=== PATIENT | female | born 1990 | race Caucasian/White ===

== ENCOUNTER 2025-04-10 21:55 | Inpatient (IN) ==
--- NOTE | 2025-03-28 12:04 | Anesthesiology Consultation ---
Date of Service March 28, 2025 Assessment & Plan (1) Encounter for pre-operative examination: - Per tumbler machine operator on 03/28/25: No known infectious disease contacts, current infectious disease symptoms in past 10 days or COVID positive test result in the past 30 days. 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 no hx hospitalization. Unique anesthetic considerations on preoperative anesthesia assessment Pt concerned about n/v and requesting anti nausea medication and also requests anti anxiety medication to help with anxiety about upcoming c/s. Pt plans to discuss requests also with OBGYN at next visit 03/30/25. pre op edu rev. Past Surgical History Surgical History History of colonoscopy with polypectomy Social History Smoking Status: Former smoker Do You Dip or Chew Tobacco: No Smoking End Date: vape prior to pregancy Hx Alcohol Use: Yes (social to ) Hx Substance Use: No substance use type: does not use
[~2025-04-10 21:55] MED LIST: ceFAZolin 3,000 MG/72.5 ML BAG IV SCH
[2025-04-10] MEDS ORDERED: LACTATED RINGER'S 1,000 ML IV SCH (22:15)
[2025-04-10] MEDS: LACTATED RINGER'S 1,000 ML IV SCH (22:15)
[2025-04-10] MEDS ORDERED: ONDANSETRON INJ 2 MG/ML 2 ML VIAL ONE (22:21)
[2025-04-10] MEDS ORDERED: OXYTOCIN 10 UNITS/ML VIAL ONE ×2 (22:21→23:01)
[2025-04-10] MEDS ORDERED: DEXAMETHASONE SOD INJ 4 MG/ML VIAL ONE (22:21)
[2025-04-10] MEDS ORDERED: PHENYLEPHRINE HCL 25 MG/250 ML NSS IV ONE (22:22)
[2025-04-10] MEDS ORDERED: MoRPHine SULFATE PF 1 MG/ML 10 ML AMP/VIAL ONE (22:22)
--- NOTE | 2025-04-10 22:23 | History & Physical Report ---
Date of Service April 10, 2025 Assessment & Plan (1) Breech presentation at : Plan: section Admission and Anticipated Discharge Date Admission Date: April 10, 2025 History of Present Illness Chief Complaint: Intrauterine 39 weeks 5 days gestation Kota rupture membranes Breech presentation Primary Care Provider: Alecia Cedeño MD Patient is a 34-year-old 1 para 0 her due date is April 14, 2025. She has had no problems. She was diagnosed with a breech presentation at 34 weeks gestation. Her last ultrasound in the office confirmed breech presentation it was 2 weeks ago. She is scheduled for primary section on April 11, 2025. She stated 8 PM the day of admission she had a gush of fluid and continuous leakage of fluid. She called and was told to come to maternity for evaluation. Once on maternity floor ruptured fluid was confirmed. At bedside ultrasound confirmed breech presentation with the head in the midline in the upper uterus. Past medical history she has no known drug allergies. She has had no previous surgery. Allergies Allergy/AdvReac Type Severity Reaction Status Date / Time No Known Allergies Allergy Verified 03/28/25 09:17 Home Medications Medication Instructions Recorded Confirmed Type prenat.vits,deisy,ara-wugg-lelhd 1 tab PO DAILY 03/28/25 03/28/25 History Past Med/Surg History Problem List (Updated 04/10/25 @ 22:22 by Andrés Cleveland MD) Breech presentation at Encounter for pre-operative examination Medical History Breech presentation History of colon polyps History of COVID-19 hx + home test 2020. no hx hospitalization. Unique anesthetic considerations on preoperative anesthesia assessment Pt concerned about n/v and requesting anti nausea medication and also requests anti anxiety medication to help with anxiety about upcoming c/s. Pt plans to discuss requests also with OBGYN at next visit 03/30/25. pre op edu rev. Surgical History History of colonoscopy with polypectomy Social History Smoking Status: Former smoker Tobacco Type: E-cigarettes / Vaping Smoking End Date: vape prior to pregancy; Do You Dip or Chew Tobacco: No; Hx Alcohol Use: Yes (social to ) Hx Substance Use: No Preferred Language: Romansh Communication Ability: Effective Retail Pharmacist Required: No Beliefs That Will Affect Care: None Current Living Situation: Spouse Other Information That Helps Us Care for You: No Feels Safe at Home: Yes Assistive Devices: None Physical Exam Physical Exam: Patient appeared to be well-developed well-nourished 34-year-old white female alert oriented x 3 cooperative in no acute distress appears stated age. Heart had regular rhythm S1 and S2 were normal. Lungs are clear to auscultation percussion. Trachea was midline there is no cervical adenopathy. Extraocular movements were intact. Abdominal examination was consistent with a breech presentation with a head ballotable in the midline at the top of the fundus. Pelvic exam revealed the presenting part to be a -3 station cervix to be closed with kota rupture of membranes. Results & Data Results & Data Vital Signs (Past 12 Hours) Vital Signs Pulse BP 04/10/ 22:03 85 127/71 Diagnostic Findings Rupture membranes Breech presentation by bedside ultrasound
[2025-04-10] MEDS ORDERED: MoRPHine SULFATE PF 1 MG/ML 10 ML AMP/VIAL INT SPINAL ONE (22:48)
[2025-04-10] MEDS ORDERED: HYDROmorphone INJ 0.5 MG/0.5 ML SYR IV PRN (22:48)
[2025-04-10] MEDS ORDERED: ONDANSETRON INJ 2 MG/ML 2 ML VIAL IV PRN (22:48)
[2025-04-10] MEDS ORDERED: diphenhydrAMINE 50 MG/ML VIAL IV PRN (22:48)
[2025-04-10] MEDS ORDERED: NALBUPHINE HCL INJ 10 MG/ML AMP IV PRN (22:48)
[2025-04-10] MEDS ORDERED: LACTATED RINGER'S 500 ML IV PRN (22:48)
[2025-04-10] MEDS ORDERED: NALOXONE HCL 1 MG in SODIUM CHLORIDE 0.9% 1,000 ML IV PRN (22:48)
[2025-04-10] MEDS ORDERED: PROMETHAZINE 6.25 MG/50.25 ML BAG IV PRN (22:48)
[2025-04-10] MEDS ORDERED: NALOXONE HCL 0.4 MG/1 ML VIAL/CARP IV PRN (22:48)
[2025-04-10] MEDS ORDERED: MoRPHine SULFATE 2 MG/ML CARP IV PRN (22:48)
[2025-04-10] MEDS: ACETAMINOPHEN 500 MG TAB PO SCH (22:54)
[2025-04-10] MEDS: CITRIC ACID/SODIUM CITRATE 15 ML UDC PO SCH (22:57)
[2025-04-10] MEDS ORDERED: DC INTRASPINAL MORPHINE SCH (23:00)
[2025-04-10] MEDS ORDERED: NO NARCOTICS OR SEDATIVES SCH (23:00)
[2025-04-10] MEDS: cefOXitin 2,000 MG in DEXTROSE 5 % MINI-B 50 ML IV SCH (23:00)
[2025-04-10] MEDS ORDERED: SODIUM CHLORIDE 0.9% 1,000 ML IV SCH (23:00)
[2025-04-10 23:10] LABS: Hematocrit (blood only) 35.1 % (37.0-47.0); Hemoglobin 12.2 g/dL (12.0-16.0); Mean Corpuscular Hemoglobin 32.4 pg (25.0-34.0); Mean Corpuscular Volume 93.4 fL (80.0-100.0); Platelet Count 147 K/uL (130-400); RDW Standard Deviation 43.6 fL (36.4-46.3); Red Blood Count 3.76 M/uL (4.20-5.40); White Blood Count 10.28 K/ul (4.8-10.8)
--- NOTE | 2025-04-11 00:01 | Anesthesiology Consultation ---
Date of Service April 11, 2025 Assessment & Plan ASA [id number] Proposed Anesthesia Anesthesia Type: Spinal Risk / Benefits Reviewed With: PT / POA / Parent / Guardian, Accepts Plan and Informed Consent Obtained Additional Comments: original day of surgery note was put in before surgery but under the wrong visit id. History Surgery Operation Date: 04/11/25 07:30 Proposed Procedures p Primary Section - Alecia Cedeño MD Height/Weight Height: 5 ft 8 in Weight: 104.326 kg Allergies Allergy/AdvReac Type Severity Reaction Status Date / Time No Known Allergies Allergy Verified 03/28/25 09:17 Medications Home Medications Medication Instructions Recorded Confirmed Last Taken prenat.vits,deisy,uuj-jaud-vnevb 1 tab PO DAILY 03/28/25 04/10/25 04/10/25 08:00 Active Medications Generic Name Dose Route Start Last Admin Trade Name Freq PRN Reason Stop Dose Admin Acetaminophen 1,000 mg 04/10/25 06:00 04/10/25 22:54 Acetaminophen 500 Mg Tab PO 04/11/25 06:00 1,000 mg PREOP DANG Administration Citric Acid/Sodium Citrate 30 ml 04/10/25 06:00 04/10/25 22:57 Citric Acid/Sodium Citrate 15 Ml Udc PO 04/11/25 06:00 30 ml PREOP DANG Administration Cefoxitin Sodium 2,000 mg/ 50 mls @ 100 mls/hr 04/10/25 06:00 04/10/25 23:00 Dextrose IV 04/11/25 05:59 100 mls/hr PREOP DANG Administration Protocol NPO Date Last Intake of Fluids: 04/10/25 Time Last Intake of Fluids: 20:00 Date Last Intake of Solids: 04/10/25 Time Last Intake of Solids: 16:30 Past Medical History Medical History Breech presentation History of colon polyps History of COVID-19 hx + home test 2020. no hx hospitalization. Unique anesthetic considerations on preoperative anesthesia assessment Pt concerned about n/v and requesting anti nausea medication and also requests anti anxiety medication to help with anxiety about upcoming c/s. Pt plans to discuss requests also with OBGYN at next visit 03/30/25. pre op edu rev. Exercise / Class Metabolic Activity II 4-5 Yardwork/Stairs/Walk up hill Past Surgical History Surgical History History of colonoscopy with polypectomy Past Anesthesia History No Hx of Anesthesia Complications and No Family Hx of Anesthesia Complications History of PONV No Hx of PONV and No Hx of Motion Sickness Social History Smoking Status: Never smoker Do You Dip or Chew Tobacco: No Smoking End Date: vape prior to pregancy Hx Alcohol Use: Yes (social to ) Hx Substance Use: No substance use type: does not use Review of Systems denies fever/cough/ colds/ chest pain/ SOB/ RUDOLPH denies RUDOLPH Physical Exam Vital Signs Last Vital Signs Temp 36.8 C 04/10/25 22:38 Pulse 85 04/10/25 22:03 Resp 16 04/10/25 22:38 BP 127/71 04/10/25 22:03 Constitutional no acute distress ENMT Mouth: no dentition abnormality Thyromental Distance: > or= 3.5 Finger Breadths Mallampati Class: II Neck normal visual inspection Respiratory normal respiratory effort; no respiratory distress Auscultation: lungs clear to auscultation bilaterally Cardiovascular Rate/Rhythm: regular rate and regular rhythm Heart Sounds: no murmur Musculoskeletal Spine: normal cervical ROM Neurologic moves all extremities Psychiatric Orientation: alert and oriented x 3 Testing Laboratory Results 04/10/25 22:39 Blood Type O Positive 04/10/25 22:39 Antibody Screen NEGATIVE 04/10/25 22:39
[2025-04-11] MEDS: OXYTOCIN 10 UNITS/ML VIAL IM ONE (00:19)
[2025-04-11] MEDS ORDERED: PROMETHAZINE 12.5 MG/50.5 ML BAG IV PRN (00:42)
[2025-04-11] MEDS ORDERED: diphenhydrAMINE Capsule 25 MG CAP PO PRN (00:42)
[2025-04-11] MEDS ORDERED: HYDROCORTISONE ACETATE 25 MG SUPP PR PRN (00:42)
[2025-04-11] MEDS ORDERED: BENZOCAINE 20% SPRY 85 APPLN/85 GM CAN EXT PRN (00:42)
[2025-04-11] MEDS ORDERED: SENNA 8.6 MG TAB PO PRN (00:42)
[2025-04-11] MEDS ORDERED: CALCIUM CARBONATE 500 MG CHEWABLE TAB PO PRN (00:42)
[2025-04-11] MEDS ORDERED: LACTATED RINGER'S 1,000 ML IV SCH ×2 (00:45→06:00)
--- NOTE | 2025-04-11 00:52 | Operative Report ---
Post Operative Report Pre & Post Diagnosis Operation Date: 04/11/25 07:30 Pre-Op Diagnosis: breech presentation; SROM @ 39 weeks Ruptured membranes Post-Op Diagnosis: same as preop I identified the patient and participated in the time-out.: Yes Procedure Operation Date: 04/11/25 07:30 Actual Procedures p Section in LD for the of a live female child @ 2349(Bilateral) - Andrés Cleveland MD Surgeon Andrés Cleveland MD Research Engineer Nurse physician office assistant Estimated Blood Loss 964 Findings Consistent with Post-Op Diagnosis Right breech presentation Macrosomia Specimens Placenta Drains None Anesthesia Type Spinal Complications None Indications Breech presentation Macrosomia Jhonny rupture membranes Description of Procedure Patient was brought to the OR table correctly identified by armband and conversation. Spinal anesthesia was administered. Garcia catheter was inserted aseptically into the bladder. Compression stockings were applied. Lower abdomen was painted with an alcohol-based sterilizing solution. Timeout was taken. Level of the anesthesia was tested and found to be adequate. A Pfannenstiel incision was made carried down to the anterior fascia by sharp dissection. Hemostasis was secured by electrocauterization. Fascia was incised transversely from the underlying muscle. Recti muscles were separ ated in the midline exposing peritoneum which was carefully raised and entered. Lower uterine segment was exposed. Jhonny breech was palpated through the lower uterine segment. Incision was made above the vesicouterine fold and the bladder was advanced out of the operative field. Lower uterine segment was scored with a knife and then entered with the scissors. Clear amniotic fluid was seen at this time. Lower uterine segment was extended bluntly with the fingers. Jhonny breech was brought out through the incision. Each individual leg was then reduced. Then each individual visual arm was reduced. And the head followed without any problems. Cord was allowed to pulse for a minute. Clamped cut and taken to the refrigerating machine operator. Cord blood was taken. The placenta was removed from the uterus. Uterus tubes and ovaries were brought out through the incision. Uterine cavity was cleansed with a clean sponge. 10 units of fat was injected into the myometrium. The lower uterine segment was then closed with 3 layers. The muscular layer was approximated with a continuous interlocking suture of chromic. Fascial layer was then approximated over this with a vertical and horizontal sutures of heavy Vicryl. 3 interrupted [id number] sutures were placed along the suture line to complete the hemostasis process. Some clotting powder was applied to the lower uterine segment. Then this was covered with a peritoneal suture which was distorted integrity of the vesicouterine fold. Pelvis was then cleansed of all blood clots and debris. Uterus tubes and ovaries were inserted into the abdominal cavity. Hemostasis was checked and was excellent. Careful anatomical approximation of the anterior abdominal wall was then performed. Peritoneum was closed with continuous Chromic Gut suture. Recti muscles approximate interrupted [id number]-[id number] suture chromic catgut fascia was closed with continuous interlocking suture of heavy Vicryl right side to the middle and then from the left side to the middle incision was then cleansed with normal saline. Subcu was approximated with a running plain. Skin edges were approximated with staple clips patient tolerated these procedures w ell left the OR in good condition. I attest to the content of the Intraoperative Record and any orders documented therein. Any exceptions are noted below.
--- NOTE | 2025-04-11 01:03 | Anesthesiology Progress Note ---
Date of Service April 11, 2025 Anesthesia Post Procedure Vital Signs Vital Signs: Temp Pulse Resp BP Pulse Ox 04/11/25 01:01 106 H 97 04/11/25 00:59 85 122/60 04/11/25 00:55 89 87 L 04/11/25 00:53 76 96 04/11/25 00:49 91 H 115/72 04/11/25 00:48 94 H 96 04/10/25 22:38 36.8 C 16 04/10/25 22:03 85 127/71 Transfer of Care Handoff Completed per policy Notes Mental Status: alert / awake / arousable and participated in evaluation Patient Amnestic to Procedure: Yes Nausea / Vomiting: adequately controlled Pain: adequately controlled Airway Patency, RR, SpO2: stable & adequate BP & HR: stable & adequate Hydration State: stable & adequate Anesthetic Complications: no major complications apparent and Pt Satisfied with anesthetic care
[2025-04-11] MEDS: OXYTOCIN 20 UNITS/LR 1,002 ML IV SCH (01:04)
[2025-04-11] MEDS: KETOROLAC 30 MG/ML VIAL IV SCH (01:08)
[2025-04-11] MEDS: LACTATED RINGER'S 1,000 ML IV SCH (01:08)
[2025-04-11] MEDS: DIPHTHER/TETAN/PERTUS Vaccine (Tdap, Adol/Adult) 0.5mL IM ONE (01:08)
[2025-04-11] MEDS ORDERED: ceFAZolin 3,000 MG/72.5 ML BAG IV SCH (06:00)
[2025-04-11] MEDS ORDERED: CITRIC ACID/SODIUM CITRATE 15 ML UDC PO SCH ×2 (06:00)
[2025-04-11] MEDS ORDERED: cefOXitin 2,000 MG in DEXTROSE 5 % MINI-B 50 ML IV SCH (06:00)
[2025-04-11] MEDS ORDERED: ACETAMINOPHEN 500 MG TAB PO SCH ×2 (06:00)
[2025-04-11] MEDS: SIMETHICONE 80 MG CHEW PO SCH (07:37)
[2025-04-11] MEDS: PRENATAL VITAMIN 1 TAB PO SCH (07:37)
[2025-04-11] MEDS: ACETAMINOPHEN 325 MG TAB PO SCH (07:37)
[2025-04-11] MEDS: FERROUS SULFATE 325 MG TAB PO SCH (07:38)
[2025-04-11] MEDS: DOCUSATE SODIUM 100 MG CAP PO SCH (07:38)
--- NOTE | 2025-04-11 08:52 | Obstetrical Progress Note ---
Date of Service April 11, 2025 Assessment & Plan Admission and Anticipated Discharge Date Admission Date: April 10, 2025 Subjective Patient is seen and examined. She feels well, no complaints. Pain is under control with meds. Has not been OOB yet Garcia has came out, has not voided yet Tolerating regular diet with out N&V Flatus none Bleeding is minimal No fever/ chills/ CP/ SOB/ N&V/ Leg pain Breast feeding without problems Vital Signs Height Weight Body Mass Index Blood Pressure Temperature Temperature Source Pulse Rate 5 ft 8 in 104.326 kg 36.6 113/57 L 36.7 C Oral 71 04/11/25 00:01 04/11/25 00:01 04/10/25 22:38 04/11/25 02:27 04/11/25 02:20 04/11/25 02:20 04/11/25 03:21 Respiratory Rate Pulse Oximetry 18 97 04/11/25 07:30 04/11/25 07:30 Lab Results 04/10/25 Range/Units 22:39 WBC 10.28 (4.8-10.8) K/ul RBC 3.76 L (4.20-5.40) M/uL Hgb 12.2 (12.0-16.0) g/dL Hct 35.1 L (37.0-47.0) % MCV 93.4 (80.0-100.0) fL MCH 32.4 (25.0-34.0) pg MCHC 34.8 (32.0-36.0) g/dL RDW Std Deviation 43.6 (36.4-46.3) fL RDW Coeff of Ruthann 12.9 (11.5-14.5) % Plt Count 147 (130-400) K/uL MPV 12.7 H (9.4-12.4) fL Treponema pallidum Ab Negative (Negative) Blood Type O Positive Antibody Screen NEGATIVE PE: General: Alert, orientedx3, NAD CVS: S1S2 RRR Lungs; CTAB Abd: soft, NT, ND, BS+, fundus firm, below Umbilicus Incision/ Dressing: Clean, dry, intact Perineum intact, Lochia rubra minimal Ext; NT, no edema, Homans sign neg/ neg AP: 34 yo s/p C Section, pod# 0 VSS Afebrile doing well Continue routine postop care Encourage ambulation, PO intake All questions were answered Results & Data Vital Signs (Past 12 Hours) Vital Signs Temp Pulse Resp BP Pulse Ox O2 Del Method 04/11/25 07:30 18 97 04/11/25 06:00 16 96 04/11/25 05:00 18 97 04/11/25 04:00 16 98 04/11/25 03:45 18 96 04/11/25 03:21 96 04/11/25 03:21 71 04/11/25 03:16 96 04/11/25 03:16 84 04/11/25 03:11 96 04/11/25 03:11 73 04/11/25 03:09 76 93 04/11/25 03:06 86 97 04/11/25 03:01 66 96 04/11/25 03:00 72 94 04/11/25 02:56 76 98 04/11/25 02:54 70 94 04/11/25 02:51 78 94 04/11/25 02:50 16 04/11/25 02:46 90 97 04/11/25 02:43 87 94 04/11/25 02:41 78 96 04/11/25 02:36 76 96 04/11/25 02:31 71 96 04/11/25 02:28 76 93 04/11/25 02:27 75 113/57 L 04/11/25 02:26 76 97 04/11/25 02:21 75 96 04/11/25 02:20 36.7 C 16 95 Room Air 04/11/25 02:16 87 96 04/11/25 02:11 78 98 04/11/25 02:06 92 H 95 04/11/25 02:01 79 98 04/11/25 01:56 85 95 04/11/25 01:51 86 96 04/11/25 01:50 36.7 C 16 98 Room Air 04/11/25 01:49 74 108/53 L 04/11/25 01:47 83 93 04/11/25 01:46 75 95 04/11/25 01:41 82 94 04/11/25 01:40 16 96 Room Air 04/11/25 01:36 97 04/11/25 01:36 84 04/11/25 01:36 92 H 94 04/11/25 01:31 75 97 04/11/25 01:30 36.8 C 16 96 Room Air 04/11/25 01:29 79 120/59 L 94 04/11/25 01:26 92 H 97 04/11/25 01:21 85 96 04/11/25 01:20 16 04/11/25 01:19 91 H 92 04/11/25 01:16 87 96 04/11/25 01:11 81 97 04/11/25 01:10 16 97 Room Air 04/11/25 01:09 85 121/57 L 04/11/25 01:06 92 H 96 04/11/25 01:01 106 H 97 04/11/25 01:00 36.8 C 18 96 Room Air 04/11/25 00:59 85 122/60 04/11/25 00:55 89 87 L 04/11/25 00:53 76 96 04/11/25 00:50 36.8 C 16 99 Room Air 04/11/25 00:49 91 H 115/72 04/11/25 00:48 94 H 96 04/10/25 22:38 36.8 C 16 04/10/25 22:03 85 127/71
[2025-04-11] MEDS: NALOXONE HCL 0.08 MG in SYRINGE 1.8 ML IV PRN (16:18)
[2025-04-11] MEDS ORDERED: diphenhydrAMINE 50 MG/ML VIAL IV PRN (16:49)
[2025-04-11] MEDS ORDERED: ONDANSETRON INJ 2 MG/ML 2 ML VIAL IV PRN (16:49)
[2025-04-11] MEDS ORDERED: ZOLPIDEM TARTRATE 5 MG TAB PO PRN (16:49)
[2025-04-11] MEDS: HYDROmorphone INJ 0.5 MG/0.5 ML SYR IV PRN (18:40)
[2025-04-12] MEDS: IBUPROFEN 600 MG TAB PO SCH (00:54)
[2025-04-12] MEDS ORDERED: KETOROLAC 30 MG/ML VIAL IV PRN (01:00)
--- NOTE | 2025-04-12 10:52 | Obstetrical Progress Note ---
Date of Service April 12, 2025 Subjective Ambulation: ambulating normally Voiding: no voiding problems Passing Gas:: No Diet Tolerance:: regular diet Lochia:: Small Feeding Type:: breast feeding Current Pain Level(1-10): 6 still in pain but improving Physical Exam Constitutional WD/WN, vitals as above Gastrointestinal (Abdomen) Inspection/Auscultation: abdomen normal to inspection incision c/d/i. abdomen soft and non-tender. Musculoskeletal Extremities: extremities normal to inspection Skin no rashes, warm and dry Neurologic patellar DTR's 2+ bilat, sensation intact Psychiatric A+Ox3, euthymic affect Results & Data Vital Signs (Past 12 Hours) Vital Signs Temp Pulse Resp BP Pulse Ox O2 Del Method 04/12/25 07:25 36.8 C 99 H 18 113/74 97 Room Air 04/11/25 23:30 36.5 C 79 16 100/64 99 Room Air Laboratory Results Laboratory Results - last 72 hr 04/10/25 22:39 WBC 10.28 RBC 3.76 L Hgb 12.2 Hct 35.1 L MCV 93.4 MCH 32.4 MCHC 34.8 RDW Std Deviation 43.6 RDW Coeff of Ruthann 12.9 Plt Count 147 MPV 12.7 H Treponema pallidum Ab Negative Blood Type O Positive Antibody Screen NEGATIVE
[2025-04-12 13:10] LABS: Hematocrit (blood only) 27.7 % (37.0-47.0); Hemoglobin 9.4 g/dL (12.0-16.0); Immature Granulocytes # (auto) 0.10 K/uL (0.01-0.20); Immature Granulocytes % (auto) 0.8 %; Mean Corpuscular Hemoglobin 33.0 pg (25.0-34.0); Mean Corpuscular Volume 97.2 fL (80.0-100.0); Platelet Count 116 K/uL (130-400); RDW Standard Deviation 46.8 fL (36.4-46.3); Red Blood Count 2.85 M/uL (4.20-5.40); White Blood Count 12.31 K/ul (4.8-10.8)
[2025-04-13] MEDS: IBUPROFEN 600 MG TAB PO PRN (01:30)
[2025-04-13 06:12] LABS: Hematocrit (blood only) 24.0 % (37.0-47.0); Hemoglobin 8.2 g/dL (12.0-16.0)
[2025-04-13 07:22] VITALS: BP 110/64; PULSE 100; RESP 18; TEMP 98.2; O2SAT 99
[2025-04-13] MEDS: ACETAMINOPHEN 325 MG TAB PO PRN (07:36)
--- NOTE | 2025-04-13 09:16 | Obstetrical Progress Note ---
Date of Service April 13, 2025 Assessment & Plan Admission and Anticipated Discharge Date Admission Date: April 10, 2025 Subjective Patient is seen and examined. She feels well, no complaints. Pain is under control with oral meds. Ambulating without dizziness Voiding without difficulty Tolerating regular diet with out N&V Flatus + BM none Bleeding is minimal No fever/ chills/ CP/ SOB/ N&V/ Leg pain Breast and bottle feeding without problems Vital Signs Temp Pulse Resp BP Pulse Ox O2 Del Method 04/13/25 07:21 36.8 C 100 H 18 110/64 99 Room Air 04/13/25 01:30 36.6 C 71 16 100/64 98 Room Air 04/12/25 20:00 36.5 C 94 H 18 106/65 99 Room Air 04/12/25 12:00 36.9 C 90 18 125/74 97 Room Air Lab Results 04/10/25 04/12/25 04/13/25 Range/Units 22:39 12:51 05:51 WBC 10.28 12.31 H (4.8-10.8) K/ul RBC 3.76 L 2.85 L (4.20-5.40) M/uL Hgb 12.2 9.4 L 8.2 L (12.0-16.0) g/dL Hct 35.1 L 27.7 L 24.0 L (37.0-47.0) % MCV 93.4 97.2 (80.0-100.0) fL MCH 32.4 33.0 (25.0-34.0) pg MCHC 34.8 33.9 (32.0-36.0) g/dL RDW Std Deviation 43.6 46.8 H (36.4-46.3) fL RDW Coeff of Ruthann 12.9 13.4 (11.5-14.5) % Plt Count 147 116 L (130-400) K/uL MPV 12.7 H 12.2 (9.4-12.4) fL Immature Gran % (Auto) 0.8 % Neut % (Auto) 77.6 % Lymph % (Auto) 14.9 % Webb % (Auto) 5.8 % Eos % (Auto) 0.7 % Baso % (Auto) 0.2 % Neut # (Auto) 9.55 H (1.40-6.50) K/uL Lymph # (Auto) 1.83 (1.20-3.40) K/uL Webb # (Auto) 0.72 H (0.11-0.59) K/uL Eos # (Auto) 0.09 (0.00-0.50) K/uL Baso # (Auto) 0.02 (0.00-0.20) K/uL Immature Gran # (Auto) 0.10 (0.01-0.20) K/uL Treponema pallidum Ab Negative (Negative) Blood Type O Positive Antibody Screen NEGATIVE PE: General: Alert, orientedx3, NAD CVS: S1S2 RRR Lungs; CTAB Abd: soft, NT, ND, BS+, fundus firm, below Umbilicus Incision/ [place]: Clean, dry, intact Perineum intact, Lochia rubra minimal Ext; NT, trace edema, Homans sign neg/ neg AP: 34 yo s/p Primary C Section, pod# 2 VSS Afebrile doing well Anemic, discussed IV iron and agreed Continue routine postop care MOM for BM Encourage ambulation, PO intake All questions were answered D/C home this afternoon Results & Data Vital Signs (Past 12 Hours) Vital Signs Temp Pulse Resp BP Pulse Ox O2 Del Method 04/13/25 07:21 36.8 C 100 H 18 110/64 99 Room Air 04/13/25 01:30 36.6 C 71 16 100/64 98 Room Air
[2025-04-13] MEDS: IRON SUCROSE 200 MG in SODIUM CHLORIDE 0.9% 100 ML IV ONE (09:23)
[2025-04-13] MEDS: MAGNESIUM HYDROXIDE SUSP 30 ML UDC PO PRN (09:57)
--- NOTE | 2025-04-25 08:54 | Discharge Summary ---
Date of Service April 25, 2025 Admission HPI Per Admitting Provider Patient is a 34-year-old 1 para 0 her due date is April 14, 2025. She has had no problems. She was diagnosed with a breech presentation at 34 weeks gestation. Her last ultrasound in the office confirmed breech presentation it was 2 weeks ago. She is scheduled for primary section on April 11, 2025. She stated 8 PM the day of admission she had a gush of fluid and continuous leakage of fluid. She called and was told to come to maternity for evaluation. Once on maternity floor ruptured fluid was confirmed. At bedside ultrasound confirmed breech presentation with the head in the midline in the upper uterus. Past medical history she has no known drug allergies. She has had no previous surgery. Discharge Data Consultations 04/10/25 22:14 Consult Anesthesiology Stat Procedures Performed Operation Date: 04/11/25 07:30 Actual Procedures p Section in for the of a live female child @ 2347(Bilateral) - Andrés Cleveland MD Hospital Course (1) Premature rupture of membranes during , delivered: Plan Patient was admitted at 39 weeks 5 days gestation with rupture membranes and breech presentation. Patient been followed in the office for care and delivery. She had been diagnosed with a breech presentation since 34 weeks gestation and was scheduled for a primary section following day. However she had kota rupture membranes. After admission a bedside ultrasound confirmed breech presentation. She was given spinal anesthesia and underwent primary low segment section. Surgery was performed without any problems. Preoperative hemoglobin was 12.2 postoperative hemoglobin was 8.2. She remained afebrile throughout her postoperative course. Had no significant postoperative problems. At time of discharge she was ambulating well and eating well. Pain was well-controlled.
== END 2025-04-13 13:48 | disposition home health service (06) | DRG 788 ==
LOC: 4S1 21:55 → 4E2 04-11 03:39 → EDSTATUS 04-11 07:30 → PREOBSVTOIN 04-11 21:54